=== PATIENT | male | born 1965 | race Caucasian/White ===

== ENCOUNTER → 2018-06-11 | Outpatient (REF) | payer BC ==
[2014-12-29 11:02] VITALS: BMI 25.1
[~2018-06-11] MED LIST: BUPR-136 PO; FOLI-68 PO; MULT-1379 PO; THIA100T62 PO; TRAZ150T8 PO
== END ==
LOC: ZZSENDIN 12:00
PROVIDERS: ATTEND Dentist
DX: D21.9 Benign neoplasm of connective and other soft tissue, unspecified (principal)
CPT/HCPCS: 88305